=== PATIENT | male | born 1990 | race Caucasian/White ===

== ENCOUNTER 2019-08-25 13:15 | Emergency (ER) | payer SELFPAY ==
[~2019-08-25] VITALS: Ht 180.3 cm; Wt 79.7 kg
[~2019-08-25 13:15] MED LIST: CIPR500T4 PO; HYDR-4011 PO; METR500T PO
[2019-08-25 13:32] VITALS: Ht 180.3 cm; Wt 79.7 kg
[2019-08-25] MEDS ORDERED: LIDOCAINE/MYLANTA 40 ML BTL PO STA (15:49)
[2019-08-25] MEDS ORDERED: HYDROmorphONE 1 MG/ML SYG IV STA (15:49)
[2019-08-25] MEDS ORDERED: SOD CHLORIDE 0.9% 1,000 ML IV STA (15:49)
[2019-08-25] MEDS ORDERED: ONDANSETRON 4 MG INJ IV STA (15:49)
[2019-08-25] MEDS ORDERED: BELLADONNA/PHENOBARBITAL TAB PO STA (15:49)
[2019-08-25] MEDS ORDERED: SOD CHLORIDE 0.9% 100 ML ONE (17:31)
[2019-08-25] MEDS ORDERED: IOHEXOL 300MG/ML 150 ML BTL ONE (17:31)
[2019-08-25] MEDS ORDERED: metroNIDAZOLE 500 MG TAB PO ONE (19:00)
[2019-08-25] MEDS ORDERED: CIPROFLOXACIN 500 MG TAB PO ONE (19:00)
[2019-08-25 19:33] VITALS: BP 125/77; PULSE 66; RESP 18
== END 2019-08-25 19:38 | disposition home or self-care (01) ==
LOC: FTE 13:15
DX: K52.9 Noninfective gastroenteritis and colitis, unspecified (principal)
CPT/HCPCS: 36415; 74177; 76705; 80053; 81001; 83690; 85025; 96374; 96375; 99285; J1170; J2405; J7030; Q9967